=== PATIENT | female | born 1965 | race African-American/Black ===

== ENCOUNTER 2025-02-15 16:54 | Emergency (ER) | payer MEDICAID, SELFPAY ==
[~2025-02-15] VITALS: Ht 172.7 cm; Wt 113.0 kg
[2025-02-15 16:58] VITALS: TEMP 97
[2025-02-15] MEDS: ACETAMINOPHEN 500 MG TAB PO ONE (18:41)
[2025-02-15] MEDS ORDERED: METH-1164 PO (20:40)
[2025-02-15] MEDS: IBUPROFEN 600 MG TAB PO ONE (20:57)
[2025-02-15 21:10] VITALS: BP 155/85; O2SAT 98
== END 2025-02-15 21:14 | disposition home or self-care (01) ==
LOC: M ED 16:54
DX: M62.830 Muscle spasm of back (principal); S80.811A Abrasion, right lower leg, initial encounter; W19.XXXA Unspecified fall, initial encounter; Y92.511 Restaurant or cafe as the place of occurrence of the external cause; Y93.9 Activity, unspecified; Y99.9 Unspecified external cause status; I10 Essential (primary) hypertension; E78.5 Hyperlipidemia, unspecified; M50.223 Other cervical disc displacement at C6-C7 level

== ENCOUNTER → 2025-03-02 | Outpatient (CLI) | payer MEDICAID, OTHER, SELFPAY ==
[~2025-03-02] MED LIST: ATOR1TAB21 PO; IBUP-1114 PO; METH-1164 PO; NIFE10CA61 PO
[2025-03-02 11:49] LABS: BASO # 0.0 10^3/uL (0.0-0.2); BASO % 0.5 % (0.0-1.0); EOS # 0.2 10^3/uL (0.0-0.5); EOS % 4.1 % (0.0-3.0); LYMPH # 1.9 10^3/uL (1.5-5.0); LYMPH % 43.0 % (24.0-44.0); MONO # 0.4 10^3/uL (0.0-0.8); MONO % 8.9 % (2.0-8.0); NEUTROPHILS # 1.9 10^3/uL (1.5-8.5); NEUTROPHILS % 43.3 % (36.0-66.0); PLATELET COUNT, AUTOMATED 151 10^3/uL (150-450)
[2025-03-02 12:01] LABS: ESTIMATED AVERAGE GLUCOSE 120.0 MG/DL (60-110)
[2025-03-02 12:14] LABS: ALT/SGPT 16.0 U/L (7.0-40); AST/SGOT 21.0 U/L (<34); CALCIUM LEVEL 9.4 MG/DL (8.3-10.6); CARBON DIOXIDE LEVEL 30.0 MMOL/L (20-31); CHLORIDE LEVEL 104.0 MMOL/L (98-107); CHOLESTEROL LEVEL 231.0 MG/DL (<200); CHOLESTEROL RISK RATIO 2.78 (<5); CREATININE FOR GFR 0.9 MG/DL (0.55-1.30); FREE T4 1.19 NG/DL (0.89-1.76); GLOMERULAR FILTRATION RATE 73.2 (>45); LDL CHOLESTEROL 134.0 MG/DL (<100); NON-HDL-C 148.2 MG/DL; POTASSIUM SERUM 3.8 MMOL/L (3.5-5.1); SODIUM LEVEL 145.0 MMOL/L (136-145); TRIGLYCERIDES LEVEL 71.0 MG/DL (<150)
== END ==
LOC: M LAB 10:29
DX: Z00.8 Encounter for other general examination (principal); I10 Essential (primary) hypertension; E78.5 Hyperlipidemia, unspecified

== ENCOUNTER → 2025-03-21 | Outpatient (CLI) | payer MEDICAID, SELFPAY | LOC: M RAD 10:11 | DX: M25.551 Pain in right hip (principal) ==

== ENCOUNTER 2025-04-30 07:21 | Day surgery (SDC) | payer MEDICAID, OTHER, SELFPAY ==
[~2025-04-30] VITALS: Ht 172.7 cm; Wt 114.5 kg
[~2025-04-30 07:21] MED LIST changes: -IBUP-1114 PO; +MIDAZOLAM INJ 2 MG/2 ML VIAL As Ordered ONE; +PHENYLEPHRINE 10% OPHTH SOL 5ML OS PRN
[2025-04-30] MEDS ORDERED: IBUP-1114 PO (08:14)
[2025-04-30] MEDS: LIDOCAINE 3.5% 1 ML OPHTH TOPICAL GEL OU ONE (08:32)
[2025-04-30] MEDS: OFLOXACIN 0.3 % (OCUFLOX) OPTH SOL 5ML OS ONE (08:32)
[2025-04-30] MEDS: TROPICAMIDE 1% OPHTH SOLN 15ML OS SCH (08:33)
[2025-04-30] MEDS: CYCLOPENTOLATE 1% OPHTH SOLN 2 ML BTL OS SCH (08:33)
[2025-04-30] MEDS: PHENYLEPHRINE 2.5% OPHTH SOL 2ML OS SCH (08:33)
[2025-04-30] MEDS: TRYPAN BLUE 0.06 % 2.25 ML OPHTH SYR (VISIONBLUE) As Ordered ONE (09:37)
[2025-04-30] MEDS: CEFUROXIME 1 MG/0.1 ML INTRACAMERAL INJ As Ordered ONE (09:37)
[2025-04-30] MEDS: BSS IRRIG/VANCO(10MG)/TOBRA(5MG)/EPINEPH(1:1000-0.5CC)500ML BAG-ORONLY As Ordered ONE (09:37)
[2025-04-30] MEDS: LIDOCAINE 1% SDV 5 ML VIAL As Ordered ONE (09:37)
[2025-04-30] MEDS: VISCOAT 40-30MG/ML 0.5ML SYRINGE As Ordered ONE (09:46)
[2025-04-30] MEDS: ACETYLCHOLINE INTRAOCULAR SOLN 1% 2ML As Ordered ONE (09:47)
[2025-04-30] MEDS: TOBRADEX OPHTH OINT 3.5 GM As Ordered ONE (09:54)
[2025-04-30 10:17] VITALS: BP 129/72; TEMP 96.9; O2SAT 98
== END 2025-04-30 10:51 | disposition home or self-care (01) ==
LOC: M SDC 07:21
PROVIDERS: ATTEND Ophthalmology
DX: H25.12 Age-related nuclear cataract, left eye (principal); I10 Essential (primary) hypertension; E78.00 Pure hypercholesterolemia, unspecified; Z79.899 Other long term (current) drug therapy
CPT/HCPCS: 66850; 67010; 92015; J0697; J2250; J3010